=== PATIENT | male | born 1965 | race Caucasian/White ===

== ENCOUNTER 2017-11-28 18:49 | Emergency (ER) | payer MEDICAID, OTHER ==
[~2017-11-28] VITALS: Ht 180.3 cm; Wt 77.2 kg
[~2017-11-28 18:49] MED LIST: CYCL-1 PO
[2017-11-28 19:00] VITALS: BP 106/83
[2017-11-28] MEDS ORDERED: ALBU8HFA PO (21:37)
[2017-11-28] MEDS ORDERED: AZIT-57 PO (21:37)
[2017-11-29] MEDS ORDERED: ALBU8.5H8 IH (14:48)
[2017-11-29] MEDS ORDERED: AZIT-63 PO (14:48)
== END 2017-11-28 22:31 | disposition home or self-care (01) ==
LOC: ER 18:50
DX: J02.9 Acute pharyngitis, unspecified (principal); I10 Essential (primary) hypertension; G89.29 Other chronic pain; Z88.0 Allergy status to penicillin; Z98.890 Other specified postprocedural states
CPT/HCPCS: 71046; 99284

== ENCOUNTER 2017-11-29 13:58 | Emergency (ER) | payer MEDICAID ==
[~2017-11-29] VITALS: Ht 180.3 cm; Wt 75.0 kg
[~2017-11-29 13:58] MED LIST changes: +ALBU8HFA PO; +AZIT-57 PO
[2017-11-29] MEDS ORDERED: AZIT-63 PO (14:48)
[2017-11-29] MEDS ORDERED: ALBU8.5H8 IH (14:48)
[2017-11-29 15:36] VITALS: BP 130/74
== END 2017-11-29 15:37 | disposition home or self-care (01) ==
LOC: ER 14:00
DX: J40 Bronchitis, not specified as acute or chronic (principal); I10 Essential (primary) hypertension; G89.29 Other chronic pain; F17.210 Nicotine dependence, cigarettes, uncomplicated; Z88.0 Allergy status to penicillin; Z79.899 Other long term (current) drug therapy; Z98.890 Other specified postprocedural states
CPT/HCPCS: 99283

== ENCOUNTER 2018-10-14 20:49 | Emergency (ER) | payer MEDICAID ==
[~2018-10-14] VITALS: Ht 180.3 cm; Wt 68.0 kg
[~2018-10-14 20:49] MED LIST changes: +ALBU8.5H8 IH; -ALBU8HFA PO; -AZIT-57 PO
[2018-10-15] MEDS ORDERED: ALBU8HFA PO (00:05)
[2018-10-15 00:32] VITALS: BP 136/80
== END 2018-10-15 00:33 | disposition home or self-care (01) ==
LOC: ER 20:50
DX: R05 Cough (principal); I10 Essential (primary) hypertension; G89.29 Other chronic pain; Z98.890 Other specified postprocedural states; Z88.0 Allergy status to penicillin; Z79.899 Other long term (current) drug therapy
CPT/HCPCS: 71046; 99283